=== PATIENT | male | born 1990 | race Caucasian/White ===

== ENCOUNTER 2016-12-01 17:10 | Emergency (ER) | payer OTHER ==
[~2016-12-01] VITALS: Ht 188 cm; Wt 79.0 kg
[2016-12-01 17:16] VITALS: BP 126/58; PULSE 81; RESP 16; TEMP 98.2; O2SAT 100
[2016-12-01] MEDS ORDERED: TETANUS/DIPHTHERIA TOXOID ADULT 0.5 ML VIAL IM ONE (18:00)
[2016-12-01] MEDS ORDERED: LIDOCAINE 1%/EPINEPHrine 1:100,000 SOLN 30 ML VIAL INFIL ONE (18:00)
[2016-12-01] MEDS ORDERED: LIDOCAINE 1%/EPINEPHrine 1:100,000 SOLN 20 ML VIAL INFIL ONE (18:00)
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
[2016-12-01] MEDS ORDERED: IOHEXOL 350 MG/ML 10 ML VIAL (for RAD DIAG) IV ONE (19:20)
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
== END 2016-12-01 20:20 | disposition home or self-care (01) ==
LOC: PHEFT 17:10
DX: S01.81XA Laceration without foreign body of other part of head, initial encounter (principal); X50.0XXA Overexertion from strenuous movement or load, initial encounter; Y93.89 Activity, other specified; Y92.89 Other specified places as the place of occurrence of the external cause; Y99.8 Other external cause status; Z23 Encounter for immunization
CPT/HCPCS: 12051; 70486; 70498; 90471; 90714; 99283; Q9967